=== PATIENT | female | born 1990 | race African-American/Black ===

== ENCOUNTER 2017-08-18 09:28 | Observation (INO) ==
[2017-08-18] MEDS ORDERED: SODIUM CHLORIDE 0.9% 500 ML IV STA (09:51)
[2017-08-18 10:43] LABS: Basophils % 0.2 % (0.0-0.8); Hematocrit 36.6 VOL% (35.7-47.0); Hemoglobin 12.6 GM/DL (12.0-16.0); Immature Granulocytes % 0.4 %; Immature Granulocytes Absolute 0.04 #; Lymphocytes # 1.1 10*3/uL (1.4-4.0); Lymphocytes % 11.1 % (21.3-54.2); Mean Corpuscular HGB Conc 34.4 GM/DL (32-36); Mean Corpuscular Hemoglobin 34 PG (27-34); Mean Corpuscular Volume 97.3 FL (87-102); Mean Platelet Volume 10.1 FL (9.6-12.0); Monocytes # 0.2 10*3/uL (0.11-0.8); Monocytes % 2.4 % (1.7-12.7); Neutrophils # 8.2 10*3/uL (1.4-7.4); Neutrophils % 85.9 % (38.7-73.9); Platelet Count 269 T/CUMM (130-400); Red Blood Count 3.76 MC/CUMM (3.8-5.5); Red Cell Distribution Width 12.9 % (9.3-17.3); White Blood Count 9.6 T/CUMM (4-12)
[2017-08-18 11:06] LABS: Albumin 3.1 G/DL (3.4-5.0); Bilirubin,Total 0.4 MG/DL (0.2-1.0); Calcium 8.5 MG/DL (8.5-10.1); Osmolality,Calculated 271.7 MOS/KG (273-304); Potassium 3.5 MMOL/L (3.5-5.1); Total Protein 7.3 G/DL (6.4-8.3)
[2017-08-18 11:42] LABS: Amorphous Crystals,Urine Many /HPF (Few); Apearance,Urine CLOUDY (Clear); Bilirubin,Urine Negative (Negative); Blood, Urine Negative (Negative); Glucose,Urine (UA) Negative (Negative); Ketones,Urine 5 mg/dL (Negative); Mucus,Urine Few /LPF (Occasional); Nitrite,Urine Negative (Negative); Protein,Urine Negative; Urine Color Yellow (Yellow); Urine Specific Gravity 1.018 (1.001-1.035); Urine Urobilinogen < 2.0 EU/DL (0.2-1.0); WBC,Urine 15 /HPF (0-6)
[2017-08-18] MEDS ORDERED: MEPERIDINE 25 MG/1 ML VIAL IV STA (13:45)
[2017-08-18] MEDS ORDERED: MAGNESIUM HYDROXIDE SUSP 30 ML UDCUP PO PRN (13:45)
[2017-08-18] MEDS ORDERED: IBUPROFEN 800 MG TABLET PO PRN (13:45)
[2017-08-18] MEDS ORDERED: ACETAMINOPHEN 325 MG TABLET PO PRN (13:45)
[2017-08-18] MEDS ORDERED: BISACODYL 10 MG SUPP RECTAL PRN (13:45)
[2017-08-18] MEDS ORDERED: ceFAZolin 1,000 MG in SYRINGE 1 EACH IV ONE (15:30)
[2017-08-18] MEDS: DEXTROSE 5% LACTATED RINGERS 1,000 ML IV SCH (15:38)
[2017-08-18] MEDS ORDERED: ceFAZolin 1,000 MG VIAL IM SCH (18:30)
[2017-08-18] MEDS ORDERED: MEPERIDINE 50 MG/1 ML VIAL IV PRN (18:32)
[2017-08-18] MEDS: ONDANSETRON 4 MG/2 ML VIAL IV PRN (19:19)
[2017-08-18] MEDS: ceFAZolin 1,000 MG in SYRINGE 1 EACH IV SCH (19:38)
[2017-08-18] MEDS ORDERED: ceFAZolin 1,000 MG VIAL IV SCH (20:00)
[2017-08-18] MEDS: LACTATED RINGERS 1,000 ML IV SCH (23:50)
[2017-08-19] MEDS: DOCUSATE SODIUM 100 MG CAPSULE PO SCH ×3 (04:05→20:11)
[2017-08-19] MEDS: ceFAZolin 1,000 MG in SYRINGE 1 EACH IV SCH ×3 (04:08→20:11)
[2017-08-19] MEDS: ONDANSETRON 4 MG/2 ML VIAL IV PRN (07:11)
[2017-08-19] MEDS: DEXTROSE 5% LACTATED RINGERS 1,000 ML IV SCH (07:34)
[2017-08-19] MEDS ORDERED: FAMOTIDINE 20 MG TABLET PO ONE (07:39)
[2017-08-19] MEDS ORDERED: CITRIC ACID/SODIUM CITRATE 30 ML UDCUP PO ONE (07:40)
[2017-08-19] MEDS: LACTATED RINGERS 1,000 ML IV SCH ×4 (11:24→13:41)
[2017-08-19] MEDS ORDERED: BUPIVACAINE 0.25% 50 ML VIAL ONE (12:15)
[2017-08-19] MEDS ORDERED: TISSUE ADHESIVE 1 EACH APPLICATOR TOP ONE (13:25)
[2017-08-19] MEDS ORDERED: PROPOFOL 200 MG/20 ML VIAL IV ONE (13:57)
[2017-08-19] MEDS ORDERED: SEVOFLURANE 1 UNIT/15 MINUTE INH ONE (13:57)
[2017-08-19] MEDS ORDERED: LACTATED RINGERS 1,000 ML IV ONE (13:58)
[2017-08-19] MEDS ORDERED: HYDROmorphone 2 MG/1 ML VIAL ONE (13:58)
[2017-08-19] MEDS ORDERED: ePHEDrine 50 MG/ML AMP ONE (13:58)
[2017-08-19] MEDS ORDERED: fentaNYL 100 MCG/2 ML VIAL ONE (13:58)
[2017-08-19] MEDS ORDERED: ONDANSETRON 4 MG/2 ML VIAL ONE (13:58)
[2017-08-19] MEDS ORDERED: GLYCOPYRROLATE 0.4 MG/2 ML VIAL ONE (14:02)
[2017-08-19] MEDS ORDERED: ROCURONIUM 100 MG/10 ML VIAL IV ONE (14:02)
[2017-08-19] MEDS ORDERED: NEOSTIGMINE 10 MG/10 ML VIAL ONE (14:02)
[2017-08-19] MEDS: MULTIVITAMIN (PRENATAL) TABLET PO SCH (17:04)
[2017-08-19] MEDS ORDERED: SIMETHICONE CHEW 80 MG TABLET PO PRN (19:44)
[2017-08-20] MEDS: ceFAZolin 1,000 MG in SYRINGE 1 EACH IV SCH (04:01)
[2017-08-20 07:20] VITALS: BP 115/69
[2017-08-20] MEDS: DOCUSATE SODIUM 100 MG CAPSULE PO SCH (09:19)
[2017-08-20] MEDS: MULTIVITAMIN (PRENATAL) TABLET PO SCH (09:19)
== END 2017-08-20 11:40 | disposition home or self-care (01) ==
LOC: EDUNIT# → EDBD → N.EDINP 09:28 → N.ED 09:28 → N.EDINP 13:35 → N.OB 13:37
PROVIDERS: ADMIT Obstetrics & Gynecology; ATTEND Obstetrics & Gynecology
PROC: LAPCHOL (2017-08-19 12:32)

== ENCOUNTER 2018-01-06 06:39 | Inpatient (IN) ==
[2018-01-06] MEDS ORDERED: CITRIC ACID/SODIUM CITRATE 30 ML UDCUP PO ONE (07:01)
[2018-01-06] MEDS ORDERED: ceFAZolin 2,000 MG in PREMIX 1 EACH IV ONE (07:01)
[2018-01-06] MEDS ORDERED: FAMOTIDINE 20 MG/2 ML VIAL IV ONE (07:01)
[2018-01-06] MEDS ORDERED: OXYTOCIN 10 UNIT/ML VIAL IM ONE (07:04)
[2018-01-06] MEDS ORDERED: OXYTOCIN/LR 30 UNIT/1,000 ML BAG IV ONE (07:05)
[2018-01-06] MEDS: LACTATED RINGERS 1,000 ML IV SCH ×2 (07:20→10:23)
[2018-01-06 07:35] LABS: Basophils % 0.2 % (0.0-0.8); Eosinophils # 0.2 10*3/uL (0.0-0.87); Hematocrit 34.1 VOL% (35.7-47.0); Hemoglobin 11.9 GM/DL (12.0-16.0); Immature Granulocytes % 0.5 %; Immature Granulocytes Absolute 0.04 #; Lymphocytes # 2.1 10*3/uL (1.4-4.0); Lymphocytes % 25.5 % (21.3-54.2); Mean Corpuscular HGB Conc 34.9 GM/DL (32-36); Mean Corpuscular Hemoglobin 33 PG (27-34); Mean Corpuscular Volume 94.5 FL (87-102); Mean Platelet Volume 10.2 FL (9.6-12.0); Monocytes # 0.4 10*3/uL (0.11-0.8); Monocytes % 5.2 % (1.7-12.7); Neutrophils # 5.6 10*3/uL (1.4-7.4); Neutrophils % 66.6 % (38.7-73.9); Platelet Count 298 T/CUMM (130-400); Red Blood Count 3.61 MC/CUMM (3.8-5.5); Red Cell Distribution Width 13.8 % (9.3-17.3); White Blood Count 8.3 T/CUMM (4-12)
[2018-01-06 08:06] LABS: Albumin 2.8 G/DL (3.4-5.0); Bilirubin,Total 0.5 MG/DL (0.2-1.0); Calcium 8.3 MG/DL (8.5-10.1); Osmolality,Calculated 272.5 MOS/KG (273-304); Potassium 3.6 MMOL/L (3.5-5.1)
[2018-01-06 13:26] LABS: Cord Arterial Blood HCO3 20.2 MMOL/L
[2018-01-06 13:27] LABS: Cord Venous Blood HCO3 23.2 MMOL/L; Cord Venous Blood PCO2 41.9 MMHG; Cord Venous Blood PO2 44.4 MMHG
[2018-01-06] MEDS ORDERED: BUPIVACAINE SPINAL 0.75% 2 ML AMP SPINAL ONE (13:51)
[2018-01-06] MEDS ORDERED: fentaNYL 100 MCG/2 ML VIAL ONE (13:52)
[2018-01-06] MEDS ORDERED: MORPHINE 10 MG/10 ML VIAL ONE (13:52)
[2018-01-06] MEDS ORDERED: KETAMINE 500 MG/10 ML VIAL ONE (13:52)
[2018-01-06] MEDS ORDERED: MIDAZOLAM 2 MG/2 ML VIAL ONE (13:52)
[2018-01-06] MEDS ORDERED: PHENYLEPHRINE 1 MG/10 ML SYRINGE IV ONE (13:53)
[2018-01-06] MEDS ORDERED: ONDANSETRON 4 MG/2 ML VIAL ONE (13:53)
[2018-01-06] MEDS ORDERED: ePHEDrine 50 MG/ML AMP ONE (13:53)
[2018-01-06] MEDS ORDERED: MORPHINE 10 MG/1 ML VIAL IV PRN (14:01)
[2018-01-06] MEDS ORDERED: ACETAMINOPHEN 325 MG TABLET PO PRN (14:07)
[2018-01-06] MEDS ORDERED: ONDANSETRON 4 MG/2 ML VIAL IV PRN (14:07)
[2018-01-06] MEDS ORDERED: IBUPROFEN 800 MG TABLET PO PRN (14:07)
[2018-01-06] MEDS ORDERED: RHO(D) IMMUNE GLOBULIN 300 MCG SYRINGE IM ONE (14:07)
[2018-01-06] MEDS ORDERED: OXYTOCIN/LR 20 UNIT/1,000 ML BAG IV ONE (14:07)
[2018-01-06] MEDS ORDERED: LACTATED RINGERS 1,000 ML IV SCH (14:30)
[2018-01-06] MEDS ORDERED: ceFAZolin 1,000 MG in SYRINGE 1 EACH IV SCH (14:30)
[2018-01-06 16:43] LABS: Apearance,Urine CLEAR (Clear); Bilirubin,Urine Negative (Negative); Blood, Urine Small mg/dL (Negative); Glucose,Urine (UA) Negative (Negative); Hyaline Casts,Urine 1 /LPF (0-3); Ketones,Urine 80 mg/dL (Negative); Nitrite,Urine Negative (Negative); Protein,Urine Negative; RBC,Urine 6 /HPF (0-4); Squamous Epithelial Cell,Urine Occasional /HPF (0-10); Transitional Epi Cells,Urine Occasional /HPF (<1); Urine Color Yellow (Yellow); Urine Specific Gravity 1.013 (1.001-1.035); WBC,Urine 1 /HPF (0-6)
[2018-01-06] MEDS ORDERED: MEPERIDINE 50 MG/1 ML VIAL IV ONE (18:37)
[2018-01-06] MEDS: ceFAZolin 1,000 MG in SYRINGE 1 EACH IV SCH (21:02)
[2018-01-06] MEDS: DOCUSATE SODIUM 100 MG CAPSULE PO SCH (21:03)
[2018-01-06 21:12] LABS: Basophils % 0.3 % (0.0-0.8); Eosinophils % 0.4 % (0.00-10.9); Hematocrit 29.8 VOL% (35.7-47.0); Hemoglobin 10.1 GM/DL (12.0-16.0); Immature Granulocytes % 0.5 %; Immature Granulocytes Absolute 0.05 #; Lymphocytes # 1.4 10*3/uL (1.4-4.0); Lymphocytes % 12.9 % (21.3-54.2); Mean Corpuscular HGB Conc 33.9 GM/DL (32-36); Mean Corpuscular Hemoglobin 33 PG (27-34); Mean Corpuscular Volume 95.8 FL (87-102); Monocytes # 0.6 10*3/uL (0.11-0.8); Monocytes % 5.1 % (1.7-12.7); Neutrophils # 8.9 10*3/uL (1.4-7.4); Neutrophils % 80.8 % (38.7-73.9); Platelet Count 260 T/CUMM (130-400); Red Blood Count 3.11 MC/CUMM (3.8-5.5); Red Cell Distribution Width 13.8 % (9.3-17.3); White Blood Count 10.9 T/CUMM (4-12)
[2018-01-07] MEDS: ALBUTEROL 2.5 MG/3 ML NEB RESP TX PRN ×2 (04:21→16:59)
[2018-01-07] MEDS: ceFAZolin 1,000 MG in SYRINGE 1 EACH IV SCH (04:57)
[2018-01-07 05:25] LABS: Basophils % 0.2 % (0.0-0.8); Eosinophils # 0.1 10*3/uL (0.0-0.87); Eosinophils % 0.6 % (0.00-10.9); Hematocrit 27.3 VOL% (35.7-47.0); Hemoglobin 9.2 GM/DL (12.0-16.0); Immature Granulocytes % 0.5 %; Immature Granulocytes Absolute 0.05 #; Lymphocytes # 1.9 10*3/uL (1.4-4.0); Lymphocytes % 18.6 % (21.3-54.2); Mean Corpuscular HGB Conc 33.7 GM/DL (32-36); Mean Corpuscular Hemoglobin 32 PG (27-34); Mean Corpuscular Volume 96.1 FL (87-102); Mean Platelet Volume 10.3 FL (9.6-12.0); Monocytes # 0.5 10*3/uL (0.11-0.8); Neutrophils # 7.5 10*3/uL (1.4-7.4); Neutrophils % 75.1 % (38.7-73.9); Platelet Count 242 T/CUMM (130-400); Red Blood Count 2.84 MC/CUMM (3.8-5.5); Red Cell Distribution Width 13.5 % (9.3-17.3)
[2018-01-07] MEDS: METOCLOPRAMIDE 10 MG/2 ML VIAL IV SCH ×2 (07:54→16:15)
[2018-01-07] MEDS: DOCUSATE SODIUM 100 MG CAPSULE PO SCH ×2 (08:41→21:50)
[2018-01-07] MEDS: FERROUS SULFATE 325 MG TABLET PO SCH ×2 (08:41→21:50)
[2018-01-07] MEDS: MAGNESIUM HYDROXIDE SUSP 30 ML UDCUP PO PRN ×2 (08:41→21:50)
[2018-01-07] MEDS: MULTIVITAMIN (PRENATAL) TABLET PO SCH (08:41)
[2018-01-07] MEDS: ALBUTEROL 2.5 MG/3 ML NEB RESP TX SCH (19:44)
[2018-01-07] MEDS: SIMETHICONE CHEW 80 MG TABLET PO PRN (21:50)
[2018-01-08] MEDS: METOCLOPRAMIDE 10 MG/2 ML VIAL IV SCH (00:21)
[2018-01-08] MEDS: ALBUTEROL 2.5 MG/3 ML NEB RESP TX SCH ×2 (00:26→07:54)
[2018-01-08] MEDS ORDERED: METOCLOPRAMIDE 10 MG TABLET ONE (08:19)
[2018-01-08] MEDS: MULTIVITAMIN (PRENATAL) TABLET PO SCH (08:23)
[2018-01-08] MEDS: DOCUSATE SODIUM 100 MG CAPSULE PO SCH (08:23)
[2018-01-08] MEDS: FERROUS SULFATE 325 MG TABLET PO SCH (08:23)
[2018-01-08] MEDS: SIMETHICONE CHEW 80 MG TABLET PO PRN (08:25)
[2018-01-08] MEDS ORDERED: METOCLOPRAMIDE 10 MG TABLET PO SCH (08:30)
[2018-01-08 08:47] VITALS: BP 138/87
[2018-01-08] MEDS ORDERED: BISACODYL 10 MG SUPP RECTAL ONE (08:53)
[2018-01-08] MEDS ORDERED: DIPH/TET/ACEL PERT BOOSTER VACCINE 0.5 ML VIAL IM ONE (11:17)
== END 2018-01-08 14:20 | disposition home or self-care (01) | DRG 540 ==
LOC: N.LDOUT 06:39 → N.LD 06:41 → N.OB 16:30
PROVIDERS: ADMIT Obstetrics & Gynecology; ATTEND Obstetrics & Gynecology
PROC: LDCSECT (ICD-10-PCS; 2018-01-06 12:00)